=== PATIENT | male | born 1975 | race Caucasian/White ===

== ENCOUNTER 2016-08-31 01:45 | Observation (INO) | payer OTHER ==
[~2016-08-31] VITALS: Ht 172.7 cm; Wt 76.6 kg
[~2016-08-31 01:45] MED LIST: DOXYCYCLINE HY100 MG PO; FLEXERIL10 MG PO; MOTRIN800 MG PO; NOHOMEMEDS; NORCO 5/3251 TABLET PO; PERCOCET 5/31 TABLET PO
[2016-08-31 02:39] LABS: HEMATOCRIT 50.3 % (38.0-50.0); MCH 32.1 PG (29.0-34.0); MCV 94.5 FL (86-99); MEAN PLAT.VOLUME 8.8 uM^3 (9.0-12.4); PLATELET COUNT 243 K/uL (156-360); RBC DIS.WIDTH-CV 15.6 % (11.8-14.6); RBC DIS.WIDTH-SD 51.8 % (39-53); RED BLOOD COUNT 5.32 M/uL (4.00-5.50); WHITE BLOOD COUNT 5.8 K/uL (4.1-10.2)
[2016-08-31 02:49] LABS: CHLORIDE 104 mEq/L (99-109); POTASSIUM 3.5 mEq/L (3.7-5.4); SODIUM 139 mEq/L (136-147)
[2016-08-31 02:51] LABS: GLUCOSE 87 mg/dL (70-99)
[2016-08-31 02:52] LABS: ANION GAP 9 MEQ/L (2-14); D-DIMER ELISA 0.39 mg/L FEU (< 0.57); PROTHROMBIN TIME 10.1 (9.2-11.2); PTT 27.2 (25-32)
[2016-08-31 02:53] LABS: TOTAL BILIRUBIN 0.2 mg/dL (0.0-1.0)
[2016-08-31 02:55] LABS: ALKALINE PHOSPHATASE 85 IU/L (3-129); GFR ESTIMATE (CALCULATED) > 59 mL/min/
[2016-08-31 02:56] LABS: UREA NITROGEN (BUN) 9 mg/dL (9-23)
[2016-08-31 02:59] LABS: TROP-I INTERPRETATION NEGATIVE; TROPONIN-I < 0.01 ng/mL (0.0-0.30)
[2016-08-31 05:32] LABS: TROP-I INTERPRETATION NEGATIVE; TROPONIN-I 0.03 ng/mL (0.0-0.30)
[2016-08-31 07:10] VITALS: BP 132/92
[2016-08-31 07:43] VITALS: BP 122/79
[2016-08-31 07:50] VITALS: BP 123/74
[2016-08-31 11:16] LABS: HEMATOCRIT 50.7 % (38.0-50.0); MCH 31.6 PG (29.0-34.0); MCHC 32.7 G/DL (30.0-36.0); MCV 96.6 FL (86-99); MEAN PLAT.VOLUME 9.3 uM^3 (9.0-12.4); PLATELET COUNT 207 K/uL (156-360); RBC DIS.WIDTH-CV 15.5 % (11.8-14.6); RBC DIS.WIDTH-SD 53.8 % (39-53); RED BLOOD COUNT 5.25 M/uL (4.00-5.50); WHITE BLOOD COUNT 5.1 K/uL (4.1-10.2)
[2016-08-31 11:29] VITALS: BP 134/82
[2016-08-31 11:56] LABS: TROP-I INTERPRETATION NEGATIVE; TROPONIN-I 0.01 ng/mL (0.0-0.30)
[2016-08-31] MEDS ORDERED: OMEPRAZOLE20 M2 PO (15:53)
[2016-08-31 16:03] VITALS: BP 128/78
[2016-08-31 17:08] LABS: TROP-I INTERPRETATION NEGATIVE; TROPONIN-I < 0.01 ng/mL (0.0-0.30)
== END 2016-08-31 17:35 | disposition home or self-care (01) ==
LOC: EME → EDBD 01:45 → EME 01:45 → EDOF 05:55 → 5WEST 05:55
PROVIDERS: Emergency Medicine; Nurse Practitioner Family
DX: R07.9 Chest pain, unspecified (principal); F17.210 Nicotine dependence, cigarettes, uncomplicated
CPT/HCPCS: 71010; 80053; 84484; 85027; 85379; 85610; 85730; 93005; 99281; 99285; G0378; J1885; J2270

== ENCOUNTER 2017-06-26 13:39 | Emergency (ER) | payer OTHER ==
[~2017-06-26] VITALS: Ht 170.2 cm; Wt 77.9 kg
[~2017-06-26 13:39] MED LIST changes: +OMEPRAZOLE20 M2 PO
[2017-06-26] MEDS ORDERED: MOTRIN600 MG PO (16:41)
[2017-06-26] MEDS ORDERED: TRAMADOL HCL50 MG PO (16:41)
[2017-06-26] MEDS ORDERED: SKELAXIN800 MG PO (16:41)
[2017-06-26 16:55] VITALS: BP 147/90
== END 2017-06-26 16:55 | disposition home or self-care (01) ==
LOC: EME 13:39
DX: S40.011A Contusion of right shoulder, initial encounter (principal); S73.101A Unspecified sprain of right hip, initial encounter; M54.2 Cervicalgia; W17.89XA Other fall from one level to another, initial encounter; Y99.0 Civilian activity done for income or pay; F17.200 Nicotine dependence, unspecified, uncomplicated
CPT/HCPCS: 72050; 73010; 73502; 99281; 99283; J3010